=== PATIENT | female | born 1985 | race Caucasian/White ===

== ENCOUNTER 2017-04-06 03:34 | Emergency (ER) | payer MEDICAID ==
[~2017-04-06] VITALS: Ht 167.6 cm; Wt 54.1 kg
[~2017-04-06 03:34] MED LIST: FERR-4 PO; IBUP-1222 PO; OXYC-302 PO
[2017-04-06 05:19] LABS: ASPARTATE AMINO TRANSFERASE 10 U/L (15-37); BLOOD UREA NITROGEN 19 mg/dL (7-18)
[2017-04-06 05:58] VITALS: BP 122/62
== END 2017-04-06 06:00 | disposition home or self-care (01) ==
LOC: ED 05:54
DX: N30.01 Acute cystitis with hematuria (principal); F17.200 Nicotine dependence, unspecified, uncomplicated
CPT/HCPCS: 36415; 76770; 80053; 81001; 83690; 84703; 85025; 87077; 87086; 87186; 99285

== ENCOUNTER 2017-06-04 18:11 | Emergency (ER) | payer MEDICAID ==
[~2017-06-04] VITALS: Ht 167.6 cm; Wt 50.4 kg
[2017-06-04 18:12] VITALS: BP 133/80
[2017-06-04] MEDS ORDERED: SILVER SULF. CRM 1% , 25GM TP ONE (18:30)
[2017-06-04] MEDS ORDERED: HYDROcodone/APAP 5/325 TABLET ONE (19:14)
[2017-06-04] MEDS ORDERED: SILVER SULF. CRM 1% , 25GM ONE (19:14)
[2017-06-04] MEDS ORDERED: IBUPROFEN 200 MG TABLET ONE (19:14)
[2017-06-04] MEDS ORDERED: HYDROcodone/APAP 5/325 TABLET PO ONE (19:30)
[2017-06-04] MEDS ORDERED: IBUPROFEN 200 MG TABLET PO ONE (19:30)
== END 2017-06-04 19:45 | disposition home or self-care (01) ==
LOC: ED 19:00
DX: T23.251A Burn of second degree of right palm, initial encounter (principal); T31.0 Burns involving less than 10% of body surface; X19.XXXA Contact with other heat and hot substances, initial encounter; Y93.89 Activity, other specified; Y92.099 Unspecified place in other non-institutional residence as the place of occurrence of the external cause; Y99.8 Other external cause status
CPT/HCPCS: 99284

== ENCOUNTER 2019-12-19 19:09 | Emergency (ER) | payer MEDICAID, OTHER ==
[~2019-12-19] VITALS: Ht 167.6 cm; Wt 54.4 kg
[2019-12-19 19:17] VITALS: BP 126/85
--- NOTE | 2019-12-19 19:40 | NUR ---
erp at pt's side for eval
== END 2019-12-19 20:27 | disposition home or self-care (01) ==
LOC: ED 20:00
DX: T78.40XA Allergy, unspecified, initial encounter (principal); R60.0 Localized edema; X58.XXXA Exposure to other specified factors, initial encounter
CPT/HCPCS: 99282

== ENCOUNTER 2021-01-08 04:08 | Emergency (ER) | payer OTHER ==
[~2021-01-08] VITALS: Ht 167.6 cm; Wt 60.3 kg
[~2021-01-08 04:08] MED LIST changes: -OXYC-302 PO; +OXYC1TAB14 PO
[2021-01-08 04:16] VITALS: BP 137/84
[2021-01-08] MEDS ORDERED: HYDROcodone/APAP 5/325 TABLET ONE (04:42)
[2021-01-08] MEDS ORDERED: ONDANSETRON ODT 4 MG ONE (04:42)
[2021-01-08] MEDS ORDERED: HYDROcodone/APAP 5/325 TABLET PO ONE (05:00)
[2021-01-08] MEDS ORDERED: ONDANSETRON ODT 4 MG PO ONE (05:00)
--- NOTE | 2021-01-08 05:04 | NUR ---
Patient given discharge instructions and they have confirmed that they understand the instructions. Patient ambulatory with steady gait.
== END 2021-01-08 05:05 | disposition home or self-care (01) ==
LOC: ED 04:45
DX: B02.9 Zoster without complications (principal); R94.31 Abnormal electrocardiogram [ECG] [EKG]
CPT/HCPCS: 93005; 99283; Q0162

== ENCOUNTER 2021-03-21 19:57 | Emergency (ER) | payer OTHER ==
[~2021-03-21] VITALS: Ht 167.6 cm; Wt 57.1 kg
[2021-03-21 20:29] VITALS: BP 141/95
[2021-03-21] MEDS ORDERED: PROPARACAINE OPHTH 0.5%, 15ML LEFTEYE ONE (21:00)
[2021-03-21] MEDS ORDERED: FLUORESCEIN OPHTHALMIC 1 MG STRIP LEFTEYE ONE (21:00)
[2021-03-21] MEDS ORDERED: BACITRACIN ZINC OINT 500U/GM, 0.9 GM ONE (21:10)
[2021-03-21] MEDS ORDERED: PROPARACAINE OPHTH 0.5%, 15ML ONE (21:17)
[2021-03-21] MEDS ORDERED: FLUORESCEIN OPHTHALMIC 1 MG STRIP ONE (21:18)
[2021-03-21] MEDS ORDERED: NEOSPORIN OINT. PKT 1 PACKET ONE (21:37)
--- NOTE | 2021-03-21 21:44 | NUR ---
MD SAW PT AND PROVIDED THE NEEDED CARE FOR HER, THIS RN GAVE MD THE EYE MEDICATIONS THAT WERE REQUESTED IN THE [facility]
== END 2021-03-21 21:54 | disposition home or self-care (01) ==
LOC: ED 21:20
DX: T22.211A Burn of second degree of right forearm, initial encounter (principal); T31.0 Burns involving less than 10% of body surface; F17.200 Nicotine dependence, unspecified, uncomplicated; X11.8XXA Contact with other hot tap-water, initial encounter; Y93.89 Activity, other specified; Y92.89 Other specified places as the place of occurrence of the external cause; Y99.8 Other external cause status
CPT/HCPCS: 16020; 99283